=== PATIENT | female | born 2000 | race Caucasian/White ===

== ENCOUNTER → 2024-08-15 | Outpatient (CLI) | payer BC ==
--- NOTE | 2024-08-15 11:32 | US ---
EXAMINATION TYPE: US venous doppler duplex LE LT DATE OF EXAM: 08/15/2024 11:02 AM COMPARISON: NONE CLINICAL INDICATION: Female, 24 years old with history of I80.9 PHLEBITIS AND THROMBOPHLEBITIS OF UNS PECIFIE; Left knee pain. No injury. No redness or swelling., Pain TECHNIQUE: The lower extremity deep venous system is examined utilizing real time linear array sonog michael with graded compression, color doppler sonography, and spectral doppler. SIDE PERFORMED: Left FINDINGS: VESSELS IMAGED: Common Femoral Vein Deep Femoral Vein Greater Saphenous Vein * Femoral Vein Popliteal Vein Small Saphenous Vein * Proximal Calf Veins (* superficial vessels) Left Leg: Negative for DVT, Color Doppler imaging shows patency of the vessels. Spectral waveforms a re within normal limits. IMPRESSION: No ultrasound evidence for deep venous thrombosis. [facility], , 08/15/2024 11:29 AM
== END | disposition home or self-care (01) ==
LOC: RADUSWWP 10:44
PROVIDERS: ATTEND Orthopaedic Surgery
DX: I80.9 Phlebitis and thrombophlebitis of unspecified site (principal); M35.7 Hypermobility syndrome; M25.562 Pain in left knee